=== PATIENT | male | born 2000 | race Caucasian/White ===

== ENCOUNTER 2024-09-17 15:04 | Emergency (ER) | payer SELFPAY ==
[2024-09-17] MEDS: Lidocaine 2% Viscous Solution 15 ML UD PO ONE (16:23)
[2024-09-17] MEDS: Benzocaine 20% Topical Spray UD MUCMEM ONE (16:23)
== END 2024-09-17 16:27 | disposition home or self-care (01) ==
LOC: MW.ED 15:04
DX: K04.7 Periapical abscess without sinus (principal); Z79.899 Other long term (current) drug therapy; Z75.8 Other problems related to medical facilities and other health care
CPT/HCPCS: 99282; A9270; 99283